=== PATIENT | female | born 2000 | race Caucasian/White ===

== ENCOUNTER 2020-04-29 11:27 | Emergency (ER) | payer MEDICAID, SELFPAY ==
[~2020-04-29] VITALS: Ht 167.6 cm; Wt 64.8 kg
[2020-04-29] MEDS ORDERED: ACETAMINOPHEN 500 MG TABLET PO ONE (12:00)
[2020-04-29 12:13] LABS: BASOPHILS % (AUTO) 0 % (0-1); EOSINOPHILS % (AUTO) 0 % (1-7); LYMPHOCYTES % (AUTO) 12 % (22-44); MEAN CORPUSCULAR HGB CONC 33.9 g/dL (32.4-35.8); MEAN PLATELET VOLUME 7.5 fL (7.4-10.4); MONOCYTES % (AUTO) 13 % (2-9); NEUTROPHILS % (AUTO) 75 % (42-75); PLATELET COUNT 212 x10^3/uL (130-400); RED BLOOD COUNT 4.63 x10^6/uL (3.82-5.3); RED CELL DISTRIBUTION WIDTH 12.4 % (9.6-15.2)
[2020-04-29 12:22] LABS: MD NO
[2020-04-29 12:26] LABS: ALANINE AMINOTRANSFERASE 23 U/L (12-78); ALBUMIN 3.6 g/dL (3.4-5.0); ANION GAP 7 mmol/L (5-15); CALCIUM 8.7 mg/dL (8.5-10.1); CHLORIDE 107 mmol/L (98-107); CREATININE 0.86 mg/dL (0.55-1.02)
[2020-04-29 12:28] LABS: ALKALINE PHOSPHATASE 63 U/L (45-117); BILIRUBIN,TOTAL 0.6 mg/dL (0.2-1.0); TOTAL PROTEIN 7.9 g/dL (6.4-8.2)
[2020-04-29] MEDS ORDERED: ACETAMINOPHEN 500 MG TABLET ONE (13:52)
[2020-04-29 13:58] VITALS: BP 113/76
[2020-04-29] MEDS ORDERED: IBUPROFEN 200 MG TABLET ONE (15:31)
[2020-04-29] MEDS ORDERED: IBUPROFEN 200 MG TABLET PO ONE (16:00)
[2020-04-29] MEDS ORDERED: IBUPROFEN 600 MG TABLET PO ONE (16:00)
== END 2020-04-29 16:00 | disposition home or self-care (01) ==
LOC: ED 12:30
DX: B34.9 Viral infection, unspecified (principal); Z20.828 Contact with and (suspected) exposure to other viral communicable diseases
CPT/HCPCS: 71045; 80053; 85025; 87635; 99284